=== PATIENT | female | born 1985 | race Caucasian/White ===

== ENCOUNTER 2018-11-11 17:03 | Emergency (ER) | payer OTHER ==
[~2018-11-11] VITALS: Ht 162.6 cm; Wt 65.0 kg
[~2018-11-11 17:03] MED LIST: GABA300C10 PO; LABE100T6 PO; OXYC20TA2 PO; PREN1TAB60 PO; SUMA50TA4 PO; flexeril
[2018-11-11] MEDS ORDERED: CIPR250T27 PO (17:24)
[2018-11-11] MEDS ORDERED: ALPR-475 PO (17:24)
[2018-11-11] MEDS ORDERED: LITH150C PO (17:24)
[2018-11-11] MEDS ORDERED: METH40TA3 PO (17:24)
--- NOTE | 2018-11-11 17:24 | NUR ---
Pt reports dx w/kidney disease, c/o bilateral flank and abd pain x2 days, increasingly worse. Pt extremely anxious in room, crying, yelling for medics not to leave. Pt attempted to get up out of gurney "I just want to leave" Pt encouraged to stay for MD zamora, pt continues to yell and sob. Fluids infusing from medics. 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
--- NOTE | 2018-11-11 17:36 | NUR ---
Pt placed on O2 via NC for fluctuating O2, 82% -96% noted on monitor. Pt calm, appears to get anxious and upset when RN enters room.
[2018-11-11] MEDS ORDERED: HALOPERIDOL 5 MG/ML ONE (17:47)
[2018-11-11] MEDS ORDERED: ONDANSETRON 2MG/ML, 2ML ONE (17:47)
[2018-11-11] MEDS ORDERED: ONDANSETRON 2MG/ML, 2ML IVPush ONE (18:00)
[2018-11-11] MEDS ORDERED: HALOPERIDOL 5 MG/ML IV ONE (18:00)
[2018-11-11 18:10] LABS: MEAN CORPUSCULAR HEMOGLOBIN 31.4 pg (27.0-34.8); MEAN CORPUSCULAR HGB CONC 33.8 g/dL (32.4-35.8); MEAN CORPUSCULAR VOLUME 92.9 fL (80-100); MEAN PLATELET VOLUME 9.1 fL (7.4-10.4); PLATELET COUNT 100 x10^3/uL (130-400); RED BLOOD COUNT 3.88 x10^6/uL (3.82-5.3); RED CELL DISTRIBUTION WIDTH 24.5 % (9.6-15.2)
--- NOTE | 2018-11-11 18:10 | NUR ---
PT ANXIOUS AND MOVING AROUND IN BED, RAMBLING. SEEMS CONFUSED. MEDICATED PER ORDERS. AT BEDSIDE
--- NOTE | 2018-11-11 18:15 | NUR ---
PT SLEEPING BUT AROUSABLE
[2018-11-11 18:16] LABS: ALANINE AMINOTRANSFERASE 100 U/L (12-78); ALBUMIN 2.7 g/dL (3.4-5.0); ANION GAP 3 mmol/L (5-15); CHLORIDE 111 mmol/L (98-107); CREATININE 1.04 mg/dL (0.55-1.02)
[2018-11-11 18:24] LABS: ALKALINE PHOSPHATASE 94 U/L (45-117); BILIRUBIN,TOTAL 0.9 mg/dL (0.2-1.0); TOTAL PROTEIN 5.6 g/dL (6.4-8.2)
[2018-11-11] MEDS ORDERED: INSULIN REGULAR 100 UNITS/ML, 3ML VIAL SQ-INSULIN ONE (18:30)
[2018-11-11 18:49] LABS: BASOPHILS # (AUTO) 0.02 x10^3/uL (0-0.1); BASOPHILS % (AUTO) 1 % (0-1); EOSINOPHILS # (AUTO) 0.03 x10^3/uL (0-0.4); EOSINOPHILS % (AUTO) 1 % (1-7); LYMPHOCYTES # (AUTO) 1.34 x10^3/uL (1-3.4); LYMPHOCYTES % (AUTO) 36 % (22-44); MD MORPH REVIEW ONLY; MONOCYTES # (AUTO) 0.26 x10^3/uL (0.2-0.8); MONOCYTES % (AUTO) 7 % (2-9); NEUTROPHILS # (AUTO) 2.09 x10^3/uL (1.8-6.8); NEUTROPHILS % (AUTO) 56 % (42-75)
[2018-11-11 18:50] LABS: <PLATELET ESTIMATE> DECREASED; ANISOCYTOSIS 1+; LARGE PLATELETS 1+
[2018-11-11 18:51] LABS: TARGET CELLS 1+
--- NOTE | 2018-11-11 19:00 | NUR ---
REMAINS DROWSY BUT AROUSABLE. HELPED ONTO BED ALCALA.
[2018-11-11 19:30] VITALS: BP 118/72
--- NOTE | 2018-11-11 19:50 | NUR ---
PT MORE AWAKE. DID NOT USE BED AL[place]A BUT ASSISTED TO COMMODE. URINE SAMPLE OBTAINED
[2018-11-11 20:03] LABS: MICROSCOPIC NOT IND
[2018-11-11 20:09] LABS: CULTURE INDICATED? NO
--- NOTE | 2018-11-11 20:44 | NUR ---
PT AND AWARE OF TEST RESULTS AND INTENTION TO DISCHARGE HOME
[2018-11-11] MEDS ORDERED: OMNIPAQUE 350 MG/ML, 100ML BOTTLE ONE (21:47)
== END 2018-11-11 21:30 | disposition home or self-care (01) ==
LOC: ED 18:33
DX: R10.84 Generalized abdominal pain (principal); R11.2 Nausea with vomiting, unspecified; Z98.890 Other specified postprocedural states; Z98.51 Tubal ligation status
CPT/HCPCS: 36415; 74177; 80053; 81003; 83690; 84703; 85025; 96374; 96375; 99284; J1630; J2405; Q9967